=== PATIENT | female | born 1955 | race Caucasian/White ===

== ENCOUNTER → 2016-10-09 | Outpatient (CLI) | payer OTHER ==
[~2016-10-09] VITALS: Ht 160 cm; Wt 66.2 kg
[~2016-10-09] MED LIST: CYCL1TAB29 PO; INSULIN HUMAN REGULAR 1,000 UNITS/10 ML VIAL SQ PRN; LACTATED RINGER'S 1000 ML IV SCH; METOPROLOL TARTRATE 25 MG TAB PO PRN; MULT-135 PO; NAPR250T57 PO; PROPOFOL 200 MG/20 ML AMP IV ONE; SODIUM CHLORID 0.9% 500 ML IV SCH
[2016-10-09 11:28] VITALS: BP 111/74; PULSE 79; RESP 16; TEMP 97.4; O2SAT 97
[2016-10-09 13:58] VITALS: TEMP 97.8
[2016-10-09 14:18] VITALS: BP 98/60; PULSE 73; RESP 18; O2SAT 99
== END ==
LOC: HEND 10:54
PROVIDERS: ATTEND Internal Medicine Gastroenterology
DX: Z12.11 Encounter for screening for malignant neoplasm of colon (principal); Z86.010 Personal history of colon polyps; K63.5 Polyp of colon; K64.8 Other hemorrhoids
CPT/HCPCS: 88305